=== PATIENT | male | born 2000 | race Caucasian/White ===

== ENCOUNTER 2024-06-10 17:13 | Emergency (ER) | payer OTHER ==
[~2024-06-10] VITALS: Ht 843.3 cm; Wt 117.9 kg
[2024-06-10] MEDS ORDERED: METH-811 PO (18:36)
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
[2024-06-10 19:40] VITALS: BP 132/70; PULSE 80; RESP 16; TEMP 98; O2SAT 100
[2024-06-10] MEDS: methoCARBamol 500 MG TABLET PO STA (19:40)
[2024-06-10] MEDS: ketOROlac 30MG VIAL (30MG/ML) IM ONE (19:40)
== END 2024-06-10 19:47 | disposition home or self-care (01) ==
LOC: EDH 17:13
DX: S39.012A Strain of muscle, fascia and tendon of lower back, initial encounter (principal); Z88.2 Allergy status to sulfonamides; Z79.899 Other long term (current) drug therapy; V89.2XXA Person injured in unspecified motor-vehicle accident, traffic, initial encounter; Y93.89 Activity, other specified; Y92.488 Other paved roadways as the place of occurrence of the external cause; Y99.8 Other external cause status
CPT/HCPCS: 99283; 96372; J1885